=== PATIENT | male | born 1935 | race Caucasian/White ===

== ENCOUNTER → 2017-07-04 | Outpatient (CLI) | payer MEDICARE ==
[~2017-07-04] MED LIST: PREG150C PO; WARF10TA6 PO; WARF7.5T6 PO
== END | disposition home or self-care (01) ==
LOC: CVU 10:11
PROVIDERS: ATTEND Internal Medicine Cardiovascular Disease
DX: I27.20 Pulmonary hypertension, unspecified (principal); I10 Essential (primary) hypertension; Q21.1 Atrial septal defect; Z95.0 Presence of cardiac pacemaker
CPT/HCPCS: 93306

== ENCOUNTER 2017-08-25 20:32 | Inpatient (IN) | payer MEDICARE ==
[~2017-08-25] VITALS: Ht 177.8 cm; Wt 75.6 kg
[~2017-08-25 20:32] MED LIST changes: +WARF10TA43 PO; -WARF10TA6 PO; +WARF7.5T46 PO; -WARF7.5T6 PO
[2017-08-25 21:05] LABS: BASOPHILS # (AUTO) 0.03 x10^3/uL (0-0.1); BASOPHILS % (AUTO) 1 % (0-1); EOSINOPHILS # (AUTO) 0.31 x10^3/uL (0-0.4); EOSINOPHILS % (AUTO) 5 % (1-7); LYMPHOCYTES # (AUTO) 1.31 x10^3/uL (1-3.4); LYMPHOCYTES % (AUTO) 23 % (22-44); MD NO; MEAN CORPUSCULAR HEMOGLOBIN 29.6 pg (27.5-34.5); MEAN CORPUSCULAR VOLUME 89.7 fL (81-97); MEAN PLATELET VOLUME 8.9 fL (7.4-10.4); MONOCYTES # (AUTO) 0.44 x10^3/uL (0.2-0.8); MONOCYTES % (AUTO) 8 % (2-9); NEUTROPHILS # (AUTO) 3.62 x10^3/uL (1.8-6.8); NEUTROPHILS % (AUTO) 63 % (42-75); PLATELET COUNT 159 x10^3/uL (130-400); RED BLOOD COUNT 4.19 x10^6/uL (4.38-5.82); RED CELL DISTRIBUTION WIDTH 15.5 % (9.4-14.8)
[2017-08-25 21:14] LABS: ALANINE AMINOTRANSFERASE 37 U/L (12-78); ALBUMIN 3.6 g/dL (3.4-5.0); ANION GAP 8 mmol/L (5-15); CALCIUM 8.8 mg/dL (8.5-10.1); CHLORIDE 106 mmol/L (98-107)
[2017-08-25 21:17] LABS: TROPONIN I < 0.015 ng/mL (0.000-0.045)
[2017-08-25 21:18] LABS: ALKALINE PHOSPHATASE 96 U/L (45-117); BILIRUBIN,TOTAL 0.7 mg/dL (0.2-1.0); CREATININE 1.98 mg/dL (0.7-1.3); TOTAL PROTEIN 7.2 g/dL (6.4-8.2)
[2017-08-25 22:24] LABS: INTERNATIONAL NORMALIZED RATIO 1.98 (0.93-1.1); PROTHROMBIN TIME 20.3 Seconds (9.6-11.5)
[2017-08-25] MEDS ORDERED: FURO-93 PO (22:33)
[2017-08-25] MEDS ORDERED: METO200T47 PO (22:33)
[2017-08-25] MEDS ORDERED: ALLO1POW PO (22:34)
[2017-08-25] MEDS ORDERED: AMIODARONE 50 MG/ML, 3ML IVPush ONE (23:00)
[2017-08-25] MEDS ORDERED: AMIODARONE 50 MG/ML, 3ML ONE (23:01)
[2017-08-25] MEDS ORDERED: FUROSEMIDE 20 MG/2 ML ONE (23:15)
[2017-08-25] MEDS ORDERED: FUROSEMIDE 20 MG/2 ML IV ONE (23:30)
[2017-08-25] MEDS ORDERED: BISACODYL 10 MG SUPP PR PRN (23:30)
[2017-08-25] MEDS: SODIUM CHLORIDE FLUSH 10ML SYR IVF SCH (23:30)
[2017-08-25] MEDS: PREGABALIN 150 MG CAPSULE PO SCH (23:30)
[2017-08-25] MEDS ORDERED: ACETAMINOPHEN 325 MG TABLET PO PRN (23:30)
[2017-08-25] MEDS ORDERED: ONDANSETRON ODT 4 MG PO PRN (23:30)
[2017-08-25] MEDS ORDERED: POLYETHYLENE GLYCOL 17 GM PACKET PO PRN (23:30)
[2017-08-25] MEDS ORDERED: WARFARIN 7.5 MG TABLET PO-COUM SCH (23:30)
[2017-08-26 03:20] LABS: BASOPHILS # (AUTO) 0.01 x10^3/uL (0-0.1); BASOPHILS % (AUTO) 0 % (0-1); EOSINOPHILS # (AUTO) 0.06 x10^3/uL (0-0.4); EOSINOPHILS % (AUTO) 1 % (1-7); LYMPHOCYTES # (AUTO) 0.65 x10^3/uL (1-3.4); LYMPHOCYTES % (AUTO) 8 % (22-44); MD NO; MEAN CORPUSCULAR HEMOGLOBIN 29.3 pg (27.5-34.5); MEAN CORPUSCULAR HGB CONC 32.5 g/dL (33.2-36.2); MEAN CORPUSCULAR VOLUME 90.3 fL (81-97); MEAN PLATELET VOLUME 8.8 fL (7.4-10.4); MONOCYTES # (AUTO) 0.76 x10^3/uL (0.2-0.8); MONOCYTES % (AUTO) 9 % (2-9); NEUTROPHILS # (AUTO) 6.94 x10^3/uL (1.8-6.8); NEUTROPHILS % (AUTO) 83 % (42-75); PLATELET COUNT 119 x10^3/uL (130-400); RED BLOOD COUNT 3.85 x10^6/uL (4.38-5.82); RED CELL DISTRIBUTION WIDTH 15.3 % (9.4-14.8)
[2017-08-26 03:27] LABS: INTERNATIONAL NORMALIZED RATIO 2.16 (0.93-1.1); PROTHROMBIN TIME 22.1 Seconds (9.6-11.5)
[2017-08-26 03:30] LABS: ALBUMIN 3.2 g/dL (3.4-5.0); ANION GAP 8 mmol/L (5-15); CALCIUM 8.3 mg/dL (8.5-10.1); CHLORIDE 107 mmol/L (98-107)
[2017-08-26 03:37] LABS: ALANINE AMINOTRANSFERASE 33 U/L (12-78); ALKALINE PHOSPHATASE 84 U/L (45-117); BILIRUBIN,TOTAL 1.2 mg/dL (0.2-1.0); CREATININE 1.99 mg/dL (0.7-1.3); TOTAL PROTEIN 6.3 g/dL (6.4-8.2); TROPONIN I 0.018 ng/mL (0.000-0.045)
[2017-08-26] MEDS: FUROSEMIDE 20 MG/2 ML IV SCH ×2 (07:30→16:30)
[2017-08-26] MEDS ORDERED: AMIODARONE 900 MG in DEXTROSE 5% 482 ML IV PRN (08:00)
[2017-08-26] MEDS ORDERED: AMIODARONE 50 MG/ML, 3ML IVPush ONE (08:00)
[2017-08-26] MEDS ORDERED: AMIODARONE 50 MG/ML, 3ML ONE (08:04)
[2017-08-26] MEDS: SODIUM CHLORIDE FLUSH 10ML SYR IVF SCH ×2 (08:19→19:52)
[2017-08-26] MEDS: SENNA/DOCUSATE TABLET PO SCH (09:00)
[2017-08-26 09:32] LABS: TROPONIN I < 0.015 ng/mL (0.000-0.045)
[2017-08-26] MEDS ORDERED: SENNA/DOCUSATE TABLET ONE (11:10)
[2017-08-26] MEDS ORDERED: POTASSIUM CHLORIDE 20 MEQ TAB.ER.PRT ONE (11:11)
[2017-08-26] MEDS: POTASSIUM CHLORIDE 20 MEQ TAB.ER.PRT PO SCH (11:18)
[2017-08-26] MEDS ORDERED: AMIODARONE 150 MG in DEXTROSE 5% 100 ML IV ONE ×2 (11:30→12:30)
[2017-08-26] MEDS ORDERED: FILTER 0.22 MICRON IV PRN (11:30)
[2017-08-26 12:04] VITALS: BP 101/62
[2017-08-26] MEDS: AMIODARONE 450 MG in DEXTROSE 5% 241 ML IV PRN ×2 (12:10→19:50)
[2017-08-26] MEDS: PREGABALIN 150 MG CAPSULE PO SCH ×2 (12:37→19:52)
[2017-08-26 19:45] VITALS: BP_SYST 92; BP_DIAS 43; BP_DIAS 53
[2017-08-26] MEDS ORDERED: WARFARIN 7.5 MG TABLET PO-COUM ONE (22:30)
[2017-08-27 01:08] VITALS: BP 105/52
[2017-08-27] MEDS ORDERED: AMIODARONE 50 MG/ML, 3ML IVPush ONE (02:30)
[2017-08-27] MEDS ORDERED: METOPROLOL TARTRATE 50 MG TABLET PO ONE (02:30)
[2017-08-27] MEDS ORDERED: AMIODARONE 150 MG in DEXTROSE 5% 100 ML IV ONE (02:30)
[2017-08-27 05:11] LABS: BASOPHILS # (AUTO) 0.03 x10^3/uL (0-0.1); BASOPHILS % (AUTO) 0 % (0-1); EOSINOPHILS # (AUTO) 0.35 x10^3/uL (0-0.4); EOSINOPHILS % (AUTO) 5 % (1-7); INTERNATIONAL NORMALIZED RATIO 2.02 (0.93-1.1); LYMPHOCYTES # (AUTO) 1.19 x10^3/uL (1-3.4); LYMPHOCYTES % (AUTO) 17 % (22-44); MD NO; MEAN CORPUSCULAR HEMOGLOBIN 29.7 pg (27.5-34.5); MEAN CORPUSCULAR HGB CONC 32.9 g/dL (33.2-36.2); MEAN CORPUSCULAR VOLUME 90.3 fL (81-97); MEAN PLATELET VOLUME 9.1 fL (7.4-10.4); MONOCYTES # (AUTO) 0.62 x10^3/uL (0.2-0.8); MONOCYTES % (AUTO) 9 % (2-9); NEUTROPHILS # (AUTO) 4.93 x10^3/uL (1.8-6.8); NEUTROPHILS % (AUTO) 69 % (42-75); PLATELET COUNT 118 x10^3/uL (130-400); PROTHROMBIN TIME 20.7 Seconds (9.6-11.5); RED CELL DISTRIBUTION WIDTH 15.9 % (9.4-14.8)
[2017-08-27 05:13] LABS: ANION GAP 5 mmol/L (5-15); CALCIUM 7.6 mg/dL (8.5-10.1); CHLORIDE 106 mmol/L (98-107)
[2017-08-27] MEDS ORDERED: POTASSIUM CHLORIDE 20 MEQ TAB.ER.PRT PO ONE (06:00)
[2017-08-27] MEDS: SENNA/DOCUSATE TABLET PO SCH (07:34)
[2017-08-27 07:43] VITALS: BP_SYST 101; BP_SYST 118; BP_DIAS 60; BP_DIAS 81
[2017-08-27] MEDS: PREGABALIN 150 MG CAPSULE PO SCH ×2 (07:50→21:04)
[2017-08-27] MEDS: FUROSEMIDE 20 MG/2 ML IV SCH ×2 (07:50→16:51)
[2017-08-27] MEDS: POTASSIUM CHLORIDE 20 MEQ TAB.ER.PRT PO SCH (07:51)
[2017-08-27] MEDS: SODIUM CHLORIDE FLUSH 10ML SYR IVF SCH ×2 (07:51→21:04)
[2017-08-27] MEDS: CEFTRIAXONE PMX 2GM/50ML 50 ML IV SCH (10:48)
[2017-08-27] MEDS: AMIODARONE 450 MG in DEXTROSE 5% 241 ML IV PRN (10:59)
[2017-08-27] MEDS: DOXYCYCLINE 100 MG in DEXTROSE 5% 250 ML IV SCH (12:13)
[2017-08-27 13:36] VITALS: BP 113/63
[2017-08-27] MEDS ORDERED: WARFARIN 7.5 MG TABLET PO-COUM ONE (18:00)
[2017-08-27 19:37] LABS: CHLORIDE,URINE RANDOM 83 mmol/L; POTASSIUM,URINE RANDOM 46 mmol/L; SODIUM,URINE RANDOM 56 mmol/L
[2017-08-27 19:41] LABS: MICROSCOPIC NOT IND
[2017-08-27 19:47] LABS: CULTURE INDICATED? YES
[2017-08-27 21:07] VITALS: BP 93/60
[2017-08-28] MEDS: AMIODARONE 450 MG in DEXTROSE 5% 241 ML IV PRN (00:42)
[2017-08-28] MEDS: DOXYCYCLINE 100 MG in DEXTROSE 5% 250 ML IV SCH ×2 (00:43→13:04)
[2017-08-28 00:46] VITALS: BP 94/53
[2017-08-28 05:26] LABS: BASOPHILS # (AUTO) 0.02 x10^3/uL (0-0.1); BASOPHILS % (AUTO) 0 % (0-1); EOSINOPHILS # (AUTO) 0.47 x10^3/uL (0-0.4); EOSINOPHILS % (AUTO) 7 % (1-7); LYMPHOCYTES # (AUTO) 0.49 x10^3/uL (1-3.4); LYMPHOCYTES % (AUTO) 7 % (22-44); MD NO; MEAN CORPUSCULAR HEMOGLOBIN 29.5 pg (27.5-34.5); MEAN CORPUSCULAR HGB CONC 32.8 g/dL (33.2-36.2); MEAN PLATELET VOLUME 8.7 fL (7.4-10.4); MONOCYTES # (AUTO) 0.35 x10^3/uL (0.2-0.8); MONOCYTES % (AUTO) 5 % (2-9); NEUTROPHILS # (AUTO) 5.68 x10^3/uL (1.8-6.8); NEUTROPHILS % (AUTO) 81 % (42-75); PLATELET COUNT 123 x10^3/uL (130-400); RED BLOOD COUNT 3.92 x10^6/uL (4.38-5.82); RED CELL DISTRIBUTION WIDTH 15.9 % (9.4-14.8)
[2017-08-28 05:27] LABS: INTERNATIONAL NORMALIZED RATIO 2.22 (0.93-1.1); PROTHROMBIN TIME 22.7 Seconds (9.6-11.5)
[2017-08-28 05:33] LABS: CHLORIDE 105 mmol/L (98-107)
[2017-08-28 05:48] LABS: % IRON SATURATION 11 % (20-55); ANION GAP 5 mmol/L (5-15); CREATININE 1.58 mg/dL (0.7-1.3); IRON LEVEL 30 mcg/dL (65-175); TOTAL IRON BINDING CAPACITY 273 mcg/dL (250-450)
[2017-08-28] MEDS: PREGABALIN 150 MG CAPSULE PO SCH ×2 (07:26→20:40)
[2017-08-28] MEDS: FUROSEMIDE 20 MG/2 ML IV SCH ×2 (07:26→16:52)
[2017-08-28] MEDS: POTASSIUM CHLORIDE 20 MEQ TAB.ER.PRT PO SCH (07:26)
[2017-08-28] MEDS: SODIUM CHLORIDE FLUSH 10ML SYR IVF SCH ×2 (07:26→20:41)
[2017-08-28] MEDS: SENNA/DOCUSATE TABLET PO SCH (07:26)
[2017-08-28 07:27] VITALS: BP 122/70
[2017-08-28] MEDS: CEFTRIAXONE PMX 2GM/50ML 50 ML IV SCH (11:18)
[2017-08-28] MEDS ORDERED: AMIODARONE 200 MG TABLET ONE (13:17)
[2017-08-28] MEDS: methylPREDNISolone SOD SUCC 40 MG/ML IV SCH ×2 (13:19→20:41)
[2017-08-28] MEDS: AMIODARONE 200 MG TABLET PO SCH ×2 (13:19→20:41)
[2017-08-28 13:21] VITALS: BP 99/48
[2017-08-28] MEDS ORDERED: WARFARIN 7.5 MG TABLET PO-COUM ONE (18:00)
[2017-08-28 20:03] VITALS: BP 93/56
[2017-08-29 01:27] VITALS: BP 101/59
[2017-08-29] MEDS: methylPREDNISolone SOD SUCC 40 MG/ML IV SCH ×5 (02:20→23:48)
[2017-08-29] MEDS: DOXYCYCLINE 100 MG in DEXTROSE 5% 250 ML IV SCH ×3 (02:20→23:48)
[2017-08-29 04:54] LABS: INTERNATIONAL NORMALIZED RATIO 2.97 (0.93-1.1); PROTHROMBIN TIME 30.2 Seconds (9.6-11.5)
[2017-08-29 05:00] LABS: ALBUMIN 2.8 g/dL (3.4-5.0); ANION GAP 9 mmol/L (5-15); CALCIUM 8.2 mg/dL (8.5-10.1); CHLORIDE 103 mmol/L (98-107); CREATININE 1.64 mg/dL (0.7-1.3)
[2017-08-29 05:06] LABS: MEAN CORPUSCULAR VOLUME 90.8 fL (81-97); MEAN PLATELET VOLUME 9.3 fL (7.4-10.4); PLATELET COUNT 119 x10^3/uL (130-400); RED BLOOD COUNT 3.73 x10^6/uL (4.38-5.82); RED CELL DISTRIBUTION WIDTH 15.1 % (9.4-14.8)
[2017-08-29 06:02] LABS: BASOPHILS % (AUTO) 0 % (0-1); EOSINOPHILS % (AUTO) 0 % (1-7); LYMPHOCYTES # (AUTO) 0.34 x10^3/uL (1-3.4); LYMPHOCYTES % (AUTO) 7 % (22-44); MD SCAN; MONOCYTES # (AUTO) 0.05 x10^3/uL (0.2-0.8); MONOCYTES % (AUTO) 1 % (2-9); NEUTROPHILS # (AUTO) 4.18 x10^3/uL (1.8-6.8); NEUTROPHILS % (AUTO) 91 % (42-75)
[2017-08-29 07:15] VITALS: BP 133/88
[2017-08-29] MEDS ORDERED: REGADENOSON 0.4 MG/5 ML SYRINGE ONE (07:41)
[2017-08-29] MEDS ORDERED: HOLD COUMADIN MC PRN (08:00)
[2017-08-29] MEDS: FUROSEMIDE 20 MG/2 ML IV SCH ×2 (11:27→18:49)
[2017-08-29] MEDS: POTASSIUM CHLORIDE 20 MEQ TAB.ER.PRT PO SCH (11:28)
[2017-08-29] MEDS: SENNA/DOCUSATE TABLET PO SCH (11:28)
[2017-08-29] MEDS: PREGABALIN 150 MG CAPSULE PO SCH ×2 (11:28→21:01)
[2017-08-29] MEDS: SODIUM CHLORIDE FLUSH 10ML SYR IVF SCH ×2 (11:29→21:02)
[2017-08-29] MEDS: AMIODARONE 200 MG TABLET PO SCH ×2 (11:29→21:02)
[2017-08-29] MEDS: FERROUS SULFATE 325 MG TABLET PO SCH ×2 (11:29→18:49)
[2017-08-29] MEDS: CEFTRIAXONE PMX 2GM/50ML 50 ML IV SCH (11:32)
[2017-08-29 13:05] VITALS: BP 108/64
[2017-08-29] MEDS: METOPROLOL TARTRATE 25 MG TABLET PO SCH (18:49)
[2017-08-29 19:17] VITALS: BP 106/60
[2017-08-30 01:37] VITALS: BP 95/58
[2017-08-30 05:07] LABS: BASOPHILS % (AUTO) 0 % (0-1); EOSINOPHILS % (AUTO) 0 % (1-7); LYMPHOCYTES # (AUTO) 0.52 x10^3/uL (1-3.4); LYMPHOCYTES % (AUTO) 6 % (22-44); MD NO; MEAN CORPUSCULAR HEMOGLOBIN 29.2 pg (27.5-34.5); MEAN CORPUSCULAR HGB CONC 32.6 g/dL (33.2-36.2); MEAN CORPUSCULAR VOLUME 89.7 fL (81-97); MEAN PLATELET VOLUME 9.1 fL (7.4-10.4); MONOCYTES # (AUTO) 0.25 x10^3/uL (0.2-0.8); MONOCYTES % (AUTO) 3 % (2-9); NEUTROPHILS # (AUTO) 8.48 x10^3/uL (1.8-6.8); NEUTROPHILS % (AUTO) 92 % (42-75); PLATELET COUNT 128 x10^3/uL (130-400); RED BLOOD COUNT 3.89 x10^6/uL (4.38-5.82); RED CELL DISTRIBUTION WIDTH 15.6 % (9.4-14.8)
[2017-08-30 05:12] LABS: ALBUMIN 2.9 g/dL (3.4-5.0); ANION GAP 7 mmol/L (5-15); CALCIUM 8.4 mg/dL (8.5-10.1); CHLORIDE 106 mmol/L (98-107); CREATININE 1.62 mg/dL (0.7-1.3)
[2017-08-30 05:51] VITALS: BP 103/52
[2017-08-30] MEDS: METOPROLOL TARTRATE 25 MG TABLET PO SCH ×2 (05:57→17:08)
[2017-08-30 07:50] VITALS: BP 94/46
[2017-08-30 09:02] LABS: INTERNATIONAL NORMALIZED RATIO 6.16 (0.93-1.1); PROTHROMBIN TIME 61.8 Seconds (9.6-11.5)
[2017-08-30] MEDS: FUROSEMIDE 20 MG/2 ML IV SCH ×2 (09:20→17:08)
[2017-08-30] MEDS: POTASSIUM CHLORIDE 20 MEQ TAB.ER.PRT PO SCH (09:20)
[2017-08-30] MEDS: FERROUS SULFATE 325 MG TABLET PO SCH ×2 (09:20→17:08)
[2017-08-30] MEDS: PREGABALIN 150 MG CAPSULE PO SCH ×2 (09:20→21:14)
[2017-08-30] MEDS: methylPREDNISolone SOD SUCC 40 MG/ML IV SCH ×3 (09:20→21:14)
[2017-08-30] MEDS: AMIODARONE 200 MG TABLET PO SCH ×2 (09:21→21:14)
[2017-08-30] MEDS: SENNA/DOCUSATE TABLET PO SCH (09:21)
[2017-08-30] MEDS: SODIUM CHLORIDE FLUSH 10ML SYR IVF SCH ×2 (09:22→21:14)
[2017-08-30] MEDS ORDERED: PHYTONADIONE 5 MG TABLET PO ONE (09:30)
[2017-08-30] MEDS: CEFTRIAXONE PMX 2GM/50ML 50 ML IV SCH (10:29)
[2017-08-30] MEDS: DOXYCYCLINE 100 MG in DEXTROSE 5% 250 ML IV SCH ×2 (12:25→23:25)
[2017-08-30 14:00] VITALS: BP 96/40
[2017-08-30 17:00] VITALS: BP 107/63
[2017-08-30 18:48] VITALS: BP 104/63
[2017-08-30] MEDS ORDERED: DOXYCYCLINE 100 MG in DEXTROSE 5% 250 ML IV SCH (22:30)
[2017-08-31 01:43] VITALS: BP 109/64
[2017-08-31 04:58] LABS: INTERNATIONAL NORMALIZED RATIO 2.36 (0.93-1.1); PROTHROMBIN TIME 24.1 Seconds (9.6-11.5)
[2017-08-31] MEDS: methylPREDNISolone SOD SUCC 40 MG/ML IV SCH ×2 (05:45→13:25)
[2017-08-31] MEDS: METOPROLOL TARTRATE 25 MG TABLET PO SCH (05:45)
[2017-08-31 05:46] VITALS: BP 106/65
[2017-08-31 07:50] VITALS: BP 116/76
[2017-08-31] MEDS: FERROUS SULFATE 325 MG TABLET PO SCH (08:04)
[2017-08-31] MEDS: AMIODARONE 200 MG TABLET PO SCH (08:05)
[2017-08-31] MEDS: POTASSIUM CHLORIDE 20 MEQ TAB.ER.PRT PO SCH (08:05)
[2017-08-31] MEDS: SODIUM CHLORIDE FLUSH 10ML SYR IVF SCH (08:05)
[2017-08-31] MEDS: PREGABALIN 150 MG CAPSULE PO SCH (08:05)
[2017-08-31] MEDS: SENNA/DOCUSATE TABLET PO SCH (08:05)
[2017-08-31] MEDS: FUROSEMIDE 20 MG/2 ML IV SCH (08:05)
[2017-08-31] MEDS ORDERED: CEFTRIAXONE PMX 2GM/50ML 50 ML IV SCH ×2 (10:30)
[2017-08-31] MEDS ORDERED: DOXY100T PO (10:59)
[2017-08-31] MEDS ORDERED: CEFD300C37 PO (10:59)
[2017-08-31] MEDS ORDERED: METO25TA35 PO (10:59)
[2017-08-31] MEDS ORDERED: AMIO200T42 PO (10:59)
[2017-08-31] MEDS ORDERED: METH4TAB2 PO (10:59)
[2017-08-31] MEDS ORDERED: FERR324T5 PO (11:06)
[2017-08-31] MEDS: DOXYCYCLINE 100 MG in DEXTROSE 5% 250 ML IV SCH (12:13)
[2017-08-31 15:00] VITALS: BP 123/80
[2017-08-31] MEDS ORDERED: WARFARIN 5 MG TABLET PO-COUM ONE (18:00)
== END 2017-08-31 16:18 | DRG 291 ==
LOC: ED 22:18 → EDIP 22:33 → 5SO 08-26 12:03
PROVIDERS: ADMIT Hospitalist; ATTEND Hospitalist
DX: I13.0 Hypertensive heart and chronic kidney disease with heart failure and stage 1 through stage 4 chronic kidney disease, or unspecified chronic kidney disease (principal); J18.9 Pneumonia, unspecified organism; J96.01 Acute respiratory failure with hypoxia; I47.2 Ventricular tachycardia; N17.9 Acute kidney failure, unspecified; E44.0 Moderate protein-calorie malnutrition; D68.59 Other primary thrombophilia; I27.20 Pulmonary hypertension, unspecified; N18.3 Chronic kidney disease, stage 3 (moderate); I50.33 Acute on chronic diastolic (congestive) heart failure; Q21.1 Atrial septal defect; I48.1 Persistent atrial fibrillation; D69.6 Thrombocytopenia, unspecified; D64.9 Anemia, unspecified; T46.2X5A Adverse effect of other antidysrhythmic drugs, initial encounter; E78.5 Hyperlipidemia, unspecified; E87.6 Hypokalemia; G47.33 Obstructive sleep apnea (adult) (pediatric); I25.10 Atherosclerotic heart disease of native coronary artery without angina pectoris; I08.0 Rheumatic disorders of both mitral and aortic valves; I71.4 Abdominal aortic aneurysm, without rupture; J45.909 Unspecified asthma, uncomplicated; Z66 Do not resuscitate; N28.1 Cyst of kidney, acquired; Z79.01 Long term (current) use of anticoagulants; Z80.1 Family history of malignant neoplasm of trachea, bronchus and lung; Z87.891 Personal history of nicotine dependence; Z95.0 Presence of cardiac pacemaker
CPT/HCPCS: 36415; 36600; 71045; 71046; 71250; 76770; 78452; 78582; 80048; 80053; 81003; 82040; 82274; 82306; 82436; 82728; 82803; 83540; 83550; 83690; 83735; 83880; 83970; 84100; 84132; 84133; 84145; 84300; 84439; 84443; 84484; 85025; 85610; 87040; 87086; 93005; 93017; 93306; 93970; 93978; 96374; 96375; J0696; J2785; J7060; A9502; A9540; A9558; C9898; J0282; J1940; J2920